=== PATIENT | male | born 1965 ===

== ENCOUNTER 2017-08-06 21:01 | Inpatient (IN) | payer OTHER ==
[2017-08-06 21:46] LABS: Bilirubin Negative (Negative); Blood, Urine Trace (Negative); Clarity CLEAR (Clear); Glucose, Urine (Dipstick) 250 mg/dL (Negative); Leukocyte Negative (Negative); Nitrite Negative (Negative); Protein, Urine (Dipstick) Trace mg/dL (Neg-Trace); Specific Gravity, Urine 1.028 (1.002-1.036); Urobilinogen 0.2 mg/dL (0.2-1.0)
[2017-08-06 21:48] LABS: Bacteria/HPF 1+ HPF (None Seen); Hyaline Casts/LPF 0-3 HYALINE CAST LPF (0-3 Hyaline); Pathc Cast-AUWi Flag 0.14 (0-2.49); Squamous Epithelial 0-3 HPF (0-3); WBC/HPF 0-3 HPF (0-3)
[2017-08-06 21:55] LABS: Amphetamine Not Detected (NotDetected); Barbiturates Screen Not Detected (NotDetected); Benzodiazepine Screen Not Detected (NotDetected); Cocaine Metabolite Screen Not Detected (NotDetected); Medtox Control Line Valid? VALID (VALID); Medtox Reader # READER 4; Methadone Not Detected (NotDetected); Methamphetamine Not Detected (NotDetected); Opiate Screen Not Detected (NotDetected); Oxycodone Screen Not Detected (NotDetected); Phencyclidine (PCP) Not Detected (NotDetected); THC/Cannabinoid Screen Not Detected (NotDetected); Tricyclic Screen Not Detected (NotDetected)
[2017-08-06 21:57] LABS: #Eosinphils 0.2 thou/uL (0.0-0.7); #Lymphocytes 1.2 thou/uL (1.20-3.40); #Monocytes 0.6 thou/uL (0.11-0.59); #Neutrophils 5.2 thou/uL (1.40-6.50); %Basophils 0.5 % (0.0-1.0); %Eosinophils 3.2 % (0.0-10.0); %Lymphocytes 16.5 % (21.0-51.0); %Neutrophils 71.7 % (42.0-75.0); Hemoglobin 16.7 g/dL (14.0-18.0); Mean Corpuscular HGB CONC 34.6 g/dL (32.0-36.0); Mean Corpuscular Hemoglobin 35.7 pg (27.0-31.0); Mean Platelet Volume 10.7 fL (7.4-10.4); Platelet Count 54 thou/uL (130-400); RBC Distribution Width 12.7 % (11.5-14.5); Red Blood Cell (RBC) Count 4.68 mill/uL (4.70-6.10); White Blood Cell (WBC) Count 7.3 thou/uL (4.8-10.8)
[2017-08-06 22:15] LABS: ALT (SGPT) 80 U/L (8-55); AST (SGOT) 88 U/L (5-34); Albumin 2.4 g/dL (3.5-5.0); Alkaline Phosphatase 241 U/L (40-150); Anion Gap 11 mmol/L (10-20); BUN (Urea Nitrogen) 11 mg/dL (8.4-25.7); Bilirubin, Total 2.9 mg/dL (0.2-1.2); CK (CPK) 93 U/L (30-200); Calc. Creatinine Clearance 0 mL/min (70-130); Calcium 8.1 mg/dL (7.8-10.44); Carbon Dioxide 16 mmol/L (22-29); Chloride 110 mmol/L (98-107); Estimated GFR-MDRD Greater than 90; Globulin 5.1 g/dL (2.4-3.5); Glucose 271 mg/dL (70-105); Lipase 72 U/L (8-78); Protein, Total 7.5 g/dL (6.0-8.3); Sodium 132 mmol/L (136-145)
[2017-08-06 22:19] LABS: CKMB 0.9 ng/mL (0-6.6); Troponin I Less than 0.010 ng/mL (< 0.028)
--- NOTE | 2017-08-06 22:34 | CT ---
CT OF THE BRAIN WITHOUT CONTRAST: 08/06/17 INDICATION: Altered mental status with history of hepatitis C and hepatic encephalopathy and cirrhosis. COMPARISON: None. FINDINGS: No acute infarct, hemorrhage or hydrocephalus is present. Septum pellucidum and third ventricle are m idline. Skull and extracranial soft tissues are within normal limits. There is a mucous retention cys t within the posterior aspect of the left maxillary sinus. IMPRESSION: No acute intracranial abnormality. POS: [facility]
[2017-08-06 22:36] LABS: Actual Bicarbonate (HCO3a) 18.6 mEq/L (22-26); Base Excess (BEa) -4.1 mEq/L (0 (+/-) 2.5); O2 Tension (PaO2) 95.2 mmHg (80.0-100.0); pH, Arterial 7.43 (7.35-7.45)
[2017-08-06 22:37] LABS: Calcium, Ionized 1.2 mmol/L (1.12-1.30); Hematocrit-ABG 48.9 % (42.0-52.0); Hemoglobin (Hb) 16.6 g/dL (14.0-18.0)
[2017-08-06 22:38] LABS: Analyzer IN Cardio ER; Puncture Site RRA
[2017-08-06] MEDS ORDERED: Rocuronium Bromide 50 MG/5 ML VIAL ONE (23:31)
[2017-08-06] MEDS ORDERED: Propofol 1,000 MG/100 ML VIAL IV ONE (23:55)
[2017-08-07] MEDS ORDERED: Ventilator Sedation Protocol 1 EACH FS SCH (00:10)
[2017-08-07] MEDS ORDERED: CCU Electrolyte Replacement 1 EACH FS SCH (00:15)
[2017-08-07] MEDS ORDERED: Dextrose 50% Abboject 50 ML SYRINGE SLOW IVP PRN ×2 (00:26→01:56)
[2017-08-07] MEDS ORDERED: Dextrose 5% in Water 1,000 ML IV PRN ×2 (00:26→01:56)
[2017-08-07] MEDS ORDERED: Ondansetron ODT 4 MG TAB SL PRN ×2 (00:34→01:18)
[2017-08-07] MEDS ORDERED: Acetaminophen 325 MG TAB PO PRN (00:34)
[2017-08-07] MEDS ORDERED: Sodium Chloride 0.9% 1,000 ML IV SCH ×3 (00:34→01:56)
[2017-08-07] MEDS ORDERED: Ondansetron HCl/PF 4 MG/2 ML Vial IVP PRN ×2 (00:34→01:18)
[2017-08-07] MEDS ORDERED: DISCONTINUE PREVIOUS NARCOTIC PAIN MEDICATIONS AND BENZODIAZEPINES FS SCH ×2 (00:37)
[2017-08-07] MEDS ORDERED: Potassium Chloride 40 MEQ in Premix Bag 1 BAG IVPB PRN (00:37)
[2017-08-07] MEDS ORDERED: Magnesium 2 GM/NS 0.9% 100 ML 2 GM in Premix Bag 1 BAG IVPB PRN (00:37)
[2017-08-07] MEDS ORDERED: Potassium Phosphate 9 MMOL in Sodium Chloride 0.9% 100 ML IVPB PRN (00:37)
[2017-08-07] MEDS ORDERED: Potassium Phosphate 12 MMOL in Sodium Chloride 0.9% 250 ML 250 ML IV PRN (00:37)
[2017-08-07] MEDS ORDERED: Magnesium Oxide 400 MG TAB PO PRN ×2 (00:37)
[2017-08-07] MEDS ORDERED: CCU ELECTROLYTE REPLACEMENT PROTOCOL FS PRN (00:37)
[2017-08-07] MEDS ORDERED: Lorazepam 2 MG/ML VIAL SLOW IVP PRN (00:37)
[2017-08-07] MEDS ORDERED: Potassium Chloride 20 MEQ TAB PO PRN ×2 (00:37)
[2017-08-07] MEDS ORDERED: Fentanyl BOLUS 250 ML IVPB PRN ×2 (00:37)
[2017-08-07] MEDS ORDERED: Potassium Phosphate 15 MMOL in Sodium Chloride 0.9% 250 ML 250 ML IV PRN (00:37)
[2017-08-07] MEDS ORDERED: Morphine 4 MG/ML VIAL SLOW IVP PRN (00:37)
[2017-08-07] MEDS ORDERED: Potassium Chloride 40 MEQ in Sodium Chloride 0.9% 250 ML 250 ML IVPB PRN (00:37)
[2017-08-07] MEDS ORDERED: fentaNYL Citrate/PF 2,000 MCG in Sodium Chloride 0.9% 60 ML IV SCH (00:37)
[2017-08-07] MEDS ORDERED: Propofol BOLUS 1,000 MG/100 ML VIAL IV PRN ×2 (00:37)
[2017-08-07 01:05] LABS: INR-International Normal Ratio 1.7; PTT 41.1 SEC (22.9-36.1); Prothrombin Time 20.8 SEC (12.0-14.7)
[2017-08-07 01:12] LABS: Acetaminophen Less than 6.0 mcg/mL (10.0-30.0); Alcohol Less than 10 mg/dL (Less than 10); Salicylate Less than 8.0 mg/dL (15.0-30.0)
[2017-08-07 01:28] LABS: CO2 Tension 28.7 mmHg (35.0-45.0); O2 Tension (PaO2) 522.5 mmHg (80.0-100.0)
[2017-08-07 01:29] LABS: Actual Bicarbonate (HCO3a) 17.5 mEq/L (22-26); Base Excess (BEa) -5.6 mEq/L (0 (+/-) 2.5); Calcium, Ionized 1.2 mmol/L (1.12-1.30); Hemoglobin (Hb) 16.3 g/dL (14.0-18.0)
--- NOTE | 2017-08-07 01:29 | PDOC.FPRHP ---
- History of Present Illness Chief Complaint: AMS History of Present Illness: Patient is a 52yo M with PMH of Hepatitis C, Cirrhosis, HTN, and T2DM who presents with AMS from the [facility]. During a med pass, the staff noted patient being altered and arrived via EMS. In the ED, patient with GCS of 6. He is not alert to answer ROS or Hx questions. History is obtained by supervising guard and medical records. ED Course: In the ED, we administered 10mg Etomidate and 80mg of Rocuronium and intubated with 8.0 tube using a Glidescope. He also received 1L NS and Diprivan drip at 10mcg/kg/min. - Allergies/Adverse Reactions Allergies Allergy/AdvReac Type Severity Reaction Status Date / Time No Known Drug Allergies Allergy Unverified 08/07/17 00:15 - Home Medications Medication Instructions Recorded Confirmed Type Furosemide [Lasix] 40 mg PO BID 08/07/17 08/07/17 History Hepatitis A Virus Vaccine/PF 1 ml IM ONE 08/07/17 08/07/17 History [Havrix] Hepatitis B Virus Vaccine/PF 20 mcg IM ONE 08/07/17 08/07/17 History [Engerix-B (Adult)] Insulin Regular (Human) [NovoLIN R] 1 units SC SEEPHYS PRN 08/07/17 08/07/17 History Insulin, Isophane Human (NPH) 12 units SC BID 08/07/17 08/07/17 History [NovoLIN N] Lactulose [Enulose] 45 gm PO TID 08/07/17 08/07/17 History Propranolol [Inderal] 10 mg PO DAILY 08/07/17 08/07/17 History Spironolactone [Aldactone] 50 mg PO BID 08/07/17 08/07/17 History - History PMHx: 1. Hepatitis C 2. Cirrhosis 3. HTN 4. T2DM PSHx: unk FHx: unk Social: unk - Review of Systems ROS unobtainable: due to mental status - Vital signs BP: 141/64 HR: 65 RR: 16 Tmax: 97.6 Pox: 97% on RA Wt: 79.4kg - Physical Exam -Constitutional: AOx0, GCS: 6, withdraws from pain HEENT: normocephalic and atraumatic, PERRLA, MMM Neck: supple, trachea midline -Neck: JVD present Heart: RRR, normal S1/S2, no murmurs/rubs/gallops, pulses present Lungs: CTAB, no respiratory distress, good air movement Abdomen: soft -Abdomen: Difficult to examine due to handcuffs being in place, but + fluid wave, palpable liver edge. -Neurological: GCS 6 Skin: no rash/lesions, no jaundice Heme/Lymphatic: no unusual bruising or bleeding, no purpura, no petechia FMR H&P: Results - Labs Result Diagrams: 08/07/17 03:18 08/07/17 03:18 Lab results: WBC 7.3 thou/uL (4.8-10.8) 08/06/17 21:43 Hgb 16.7 g/dL (14.0-18.0) 08/06/17 21:43 Hct 48.2 % (42.0-52.0) 08/06/17 21:43 MCV 103.0 fl (80.0-94.0) H 08/06/17 21:43 Plt Count 54 thou/uL (130-400) L 08/06/17 21:43 Neutrophils % 71.7 % (42.0-75.0) 08/06/17 21:43 ABG pH 7.43 (7.35-7.45) 08/06/17 21:43 ABG pCO2 29.0 mmHg (35.0-45.0) L 08/06/17 21:43 ABG pO2 95.2 mmHg (80.0-100.0) 08/06/17 21:43 Sodium 132 mmol/L (136-145) L 08/06/17 21:43 Potassium 5.0 mmol/L (3.5-5.1) 08/06/17 21:43 Chloride 110 mmol/L (98-107) H 08/06/17 21:43 Carbon Dioxide 16 mmol/L (22-29) L 08/06/17 21:43 BUN 11 mg/dL (8.4-25.7) 08/06/17 21:43 Creatinine 0.73 mg/dL (0.6-1.3) 08/06/17 21:43 Glucose 271 mg/dL (70-105) H 08/06/17 21:43 Calcium 8.1 mg/dL (7.8-10.44) 08/06/17 21:43 Total Bilirubin 2.9 mg/dL (0.2-1.2) H 08/06/17 21:43 AST 88 U/L (5-34) H 08/06/17 21:43 ALT 80 U/L (8-55) H 08/06/17 21:43 Alkaline Phosphatase 241 U/L (40-150) H 08/06/17 21:43 Ammonia 229 umol/L (18-72) H 08/06/17 21:44 Creatine Kinase 93 U/L (30-200) 08/06/17 21:43 CK-MB (CK-2) 0.9 ng/mL (0-6.6) 08/06/17 21:43 Serum Total Protein 7.5 g/dL (6.0-8.3) 08/06/17 21:43 Albumin 2.4 g/dL (3.5-5.0) L 08/06/17 21:43 Lipase 72 U/L (8-78) 08/06/17 21:43 Urine Ketones Negative mg/dL (Negative) 08/06/17 21:42 Urine Blood Trace (Negative) H 08/06/17 21:42 Urine Nitrite Negative (Negative) 08/06/17 21:42 Ur Leukocyte Esterase Negative (Negative) 08/06/17 21:42 Urine RBC 7-10 HPF (0-3) H 08/06/17 21:42 Urine WBC 0-3 HPF (0-3) 08/06/17 21:42 Ur Squamous Epith Cells 0-3 HPF (0-3) 08/06/17 21:42 Urine Bacteria 1+ HPF (None Seen) H 08/06/17 21:42 - Radiology Interpretation CT scan - head Status: image reviewed by me, report reviewed by me Additional comment: CThead with no acute abnormality. FMR H&P: A/P - Problem List (1) Acute hepatic encephalopathy Current Visit: Yes Status: Acute Code(s): K72.00 - ACUTE AND SUBACUTE HEPATIC FAILURE WITHOUT COMA (2) Thrombocytopenia Current Visit: Yes Status: Acute Code(s): D69.6 - THROMBOCYTOPENIA, UNSPECIFIED (3) Metabolic acidosis Current Visit: Yes Status: Acute Code(s): E87.2 - ACIDOSIS (4) Hepatitis C Current Visit: Yes Status: Chronic Code(s): B19.20 - UNSPECIFIED VIRAL HEPATITIS C WITHOUT HEPATIC COMA (5) Cirrhosis Current Visit: Yes Status: Chronic Code(s): K74.60 - UNSPECIFIED CIRRHOSIS OF LIVER (6) Hyponatremia Current Visit: Yes Status: Acute Code(s): E87.1 - HYPO-OSMOLALITY AND HYPONATREMIA (7) Hyperchloremia Current Visit: Yes Status: Acute Code(s): E87.8 - OTH DISORDERS OF ELECTROLYTE AND FLUID BALANCE, NEC (8) Hyperbilirubinemia Current Visit: Yes Status: Acute Code(s): E80.6 - OTHER DISORDERS OF BILIRUBIN METABOLISM (9) Type 2 diabetes mellitus Current Visit: Yes Status: Chronic (10) Hypertension Current Visit: Yes Status: Chronic Code(s): I10 - ESSENTIAL (PRIMARY) HYPERTENSION - Plan Acute Hepatic Encephalopathy - MELD-Na score 21 - Lactulose 30mg QID, Rifaximin q8h - Initial GCS 6, intubated in ED by myself, with Jonah supervising - Propofol ggt for sedation - Vent settings: PEEP 5, Fio2 100%, Rate 15, TV 500 - consult Pulm - Initial Ammonia 229, repeat in am - SDS, UA, urine cx pending - CThead negative - No white count or fever. Do not suspect SBP at this time Metabolic Acidosis - 2/2 #1 Hyponatremia - likely 2/2 chronic cirrhosis Hyperbilirubinemia - 2/2 Cirrhosis, will continue to monitor Thrombocytopenia - Plt 54 - 2/2 Cirrhosis, will continue to monitor HTN - Continue home Propranolol and Lasix T2DM - continue home Humulin - SSI Hepatitis C - unclear if this has been treated - consider GI consult Disposition/LOS: Length of hospital stay: > 2 days FMR H&P: Upper Level - Pertinent history 52 year old male presents to ED from group home for altered mental status. History is limited due to his ACS and no history being available from group home guards present. He was found to be obtunded today while meds were being passed out. He did not respond to commands but had a pulse and was breathing spontaneously. Time last seen normal is unknown. In the ER, he was noted to withdraw from pain but was not alert and did not follow commands. He was seen by Dr. Almanza and STACEY Hernandez and given iv fluids. His ammonia was found to be 229. PMH includes Hep C, HTN, cirrhosis, and DM2. Is reported to have previous PSH unknown Social history Patient is incarcerated. Otherwise history unknown - Pertinent findings Temp 97.6 RR 11 HR 68 BP 118/49 O2 sat 98% on room air Weight 79.4 kg General: Obtunded. Eyes: Pupils sluggish. Does not open eyes on command ENT: MMM, oropharynx clear CV: RRR, no murmurs, rubs or gallops. Pulses full and equal Resp: CTAB. No wheezing, rales, or rhonchi Abdomen: Ascites with fluid wave present. No palpable masses Extremity: No cyanosis or edema. Skin: No rash or ulcer. No palpable lesions Neuro: GCS [id number] - Plan Date/Time: 08/07/17 0102 I, Joe Brownlee DO, have evaluated this patient and agree with findings/plan as outlined by internet programmer resident. Pertinent changes/additions are listed here. A/P 52 year old male with PMH of cirrhosis and hepatitis C presents with: 1) Acute hepatic encephalopathy - Admit to CCU. - Will give lactulose and rifaximin. Repeat ammonia in the morning. - Will check UA and CXR to look for contributing factors. - No white count or fever. Do not suspect spontaneous bacterial peritonitis at this time but consider diagnostic paracentesis should this change. - When I evaluated the patient, I found him to have a GCS of 6 to 7. At times, he would withdraw from pain but at others he would only have flexion to pain. STACEY Herbert reported he looked worse than when she had initially seen him. - In light of the patient being obtunded and apparently worsening, the decision was made to intubate him. He was given 10 mg etomidate and 80 mg rocuronium and was intubated by Glidescope by Dr. Galicia with myself and Dr. Almanza supervising. - Consult pulmonology in the morning 2) Diabetes mellitus type 2 - Accuchecks and sliding scale insulin 3) Hypertension - Monitor and treat prn 4) Hepatitis C - Unclear if this has been treated. Attending Addendum - Attending Addendum Date/Time: 08/07/17 0251 I personally evaluated the patient and discussed the management with Dr. Galicia I agree with the History, Examination, Assessment and Plan documented above with any addition or exceptions noted below- Briefly this is a 52yo M with h/o Hepatitis C, Cirrhosis, HTN, and T2DM who presents with AMS from the [facility]. The staff noted patient being altered and arrived via EMS. In the ED, patient with GCS of 6. He is not alert to answer ROS or Hx questions. History is obtained by supervising guard and medical records. Patient intubated in ER for airway protection. PMH/PSH/ALl/Meds reviewed and agree with resident' s documentation. Afebrile BP 183/90 P85 RR15 99%RA Exam repeated by me- significant findings- GCS=6 prior to intubation, Lungs-CTA b/l; CV-RRR, no murmur; Abd- soft, nd, (+) hepatomegaly Pertinent labs: ML=077 K=5.0 Nk=281 CO2= 16 G;qa=099 T.bili=2.9 AST=88 ALT=80 alk zpnz=210 TSH=1.9741 WBC=7.3 Hgb=16.7 Hct=48.2 Plt=54 INR=1.7 UDS neg; ABG= 7.40/29/523/17 99% Fyrebiv=116 A/P: 1) Hepatic encephalopathy- continue lactulose; will add rifaxamin. 2) Acute resp failure due to hyperammonemia- continue vent support and wean as toleratedm 3) Type 2 DM- monitor accuchecks and treat accordingly, 4) HTN- continue home meds
[2017-08-07 01:30] LABS: ALV-art Gradient 154.625 (0-20); Analyzer IN Cardio ER; Puncture Site LFA
[2017-08-07] MEDS ORDERED: HumaLOG 300 UNITS/3 ML VIAL SC PRN ×2 (01:56)
[2017-08-07 02:26] VITALS: BMI 27.3
[2017-08-07 04:21] LABS: #Basophils 0.1 thou/uL (0.0-0.2); #Eosinphils 0.2 thou/uL (0.0-0.7); #Lymphocytes 1.3 thou/uL (1.20-3.40); #Monocytes 0.9 thou/uL (0.11-0.59); #Neutrophils 8.2 thou/uL (1.40-6.50); %Basophils 0.5 % (0.0-1.0); %Eosinophils 2.2 % (0.0-10.0); %Lymphocytes 11.9 % (21.0-51.0); %Monocytes 8.4 % (0.0-10.0); %Neutrophils 76.9 % (42.0-75.0); Hemoglobin 16.7 g/dL (14.0-18.0); Mean Corpuscular HGB CONC 36.2 g/dL (32.0-36.0); Mean Corpuscular Hemoglobin 37.1 pg (27.0-31.0); Mean Platelet Volume 10.9 fL (7.4-10.4); Platelet Count 55 thou/uL (130-400); RBC Distribution Width 12.8 % (11.5-14.5); Red Blood Cell (RBC) Count 4.51 mill/uL (4.70-6.10); White Blood Cell (WBC) Count 10.7 thou/uL (4.8-10.8)
[2017-08-07] MEDS ORDERED: Pantoprazole 40 MG VIAL IVP SCH ×2 (04:30)
[2017-08-07] MEDS ORDERED: Octreotide Acetate 50 MCG/ML AMP SLOW IVP SCH (04:30)
[2017-08-07] MEDS ORDERED: Octreotide Acetate 1,250 MCG in Sodium Chloride 0.9% 250 ML 250 ML IVPB SCH (04:30)
[2017-08-07 04:31] LABS: ALT (SGPT) 81 U/L (8-55); AST (SGOT) 86 U/L (5-34); Albumin 2.5 g/dL (3.5-5.0); Alkaline Phosphatase 225 U/L (40-150); Anion Gap 11 mmol/L (10-20); BUN (Urea Nitrogen) 13 mg/dL (8.4-25.7); Bilirubin, Total 3.5 mg/dL (0.2-1.2); Calc. Creatinine Clearance 127 mL/min (70-130); Calcium 8.3 mg/dL (7.8-10.44); Carbon Dioxide 17 mmol/L (22-29); Chloride 111 mmol/L (98-107); Estimated GFR-MDRD Greater than 90; Glucose 267 mg/dL (70-105); Potassium 4.9 mmol/L (3.5-5.1); Protein, Total 7.5 g/dL (6.0-8.3); Sodium 134 mmol/L (136-145)
[2017-08-07] MEDS ORDERED: Sodium Chloride 0.9% 500 ML IV SCH (04:45)
[2017-08-07] MEDS: Propofol 1,000 MG/100 ML VIAL IV PRN ×3 (05:54→22:30)
[2017-08-07] MEDS: Furosemide 20 MG/2 ML VIAL SLOW IVP SCH ×2 (05:55→13:41)
--- NOTE | 2017-08-07 07:48 | PDOC.FM ---
- Subjective Subjective: Pt currently sedated and on mechanical ventilation. - Objective MAR Reviewed: Yes Vital Signs & Weight: Vital Signs (12 hours) Temp Pulse Resp Pulse Ox 08/07/17 03:00 97.5 F L 08/07/17 02:00 18 08/07/17 01:00 97.8 F 140 H 26 H 100 Weight Admit Weight 76.8 kg Weight 76.8 kg Most Recent Monitor Data Heart Rate from ECG 102 NIBP 116/74 NIBP BP-Mean 83 Respiration from ECG 16 SpO2 100 I&O: 08/06/17 08/07/17 08/08/17 06:59 06:59 06:59 Intake Total 669.3 Output Total 500 325 Balance 169.3 -325 Result Diagrams: 08/07/17 03:18 08/07/17 03:18 <Deborah Ramirez C - Last Filed: 08/07/17 08:08> - Objective Vital Signs & Weight: Vital Signs (12 hours) Temp Pulse Resp BP Pulse Ox 08/07/17 10:00 14 08/07/17 08:16 96 142/62 H 08/07/17 08:00 15 08/07/17 07:43 97.5 F L 94 15 100 08/07/17 06:00 15 08/07/17 04:00 15 08/07/17 03:00 97.5 F L 08/07/17 02:00 18 08/07/17 01:00 97.8 F 140 H 26 H 100 Weight Admit Weight 76.8 kg Weight 76.8 kg Most Recent Monitor Data Heart Rate from ECG 87 NIBP 94/53 NIBP BP-Mean 67 Respiration from ECG 15 SpO2 100 I&O: 08/06/17 08/07/17 08/08/17 06:59 06:59 06:59 Intake Total 669.3 0 Output Total 500 800 Balance 169.3 -800 Result Diagrams: 08/07/17 03:18 08/07/17 03:18 <Gabo Matthews - Last Filed: 08/07/17 11:32> Phys Exam - Physical Examination Constitutional: NAD Respiratory: clear to auscultation bilateral Cardiovascular: RRR Gastrointestinal: soft, non-tender Musculoskeletal: no edema Psychiatric: normal affect, A&O x 3 <Deborah Ramirez - Last Filed: 08/07/17 08:08> Dx/Plan (1) Acute hepatic encephalopathy Code(s): K72.00 - ACUTE AND SUBACUTE HEPATIC FAILURE WITHOUT COMA Status: Acute Plan: Pt intubated and sedated for airway protection due to Vent management per Pulm. Continue Lactulose and Rifaximin. (2) GI bleed Code(s): K92.2 - GASTROINTESTINAL HEMORRHAGE, UNSPECIFIED Status: Acute Plan: Blood noted in OG tube after placement. Possibly traumatic vs. Variceal. Will discuss with GI. (3) Hyponatremia Code(s): E87.1 - HYPO-OSMOLALITY AND HYPONATREMIA Status: Acute Plan: 2/ to liver disease Na: 134. continue to monitor. (4) Thrombocytopenia Code(s): D69.6 - THROMBOCYTOPENIA, UNSPECIFIED Status: Acute Plan: No active bleeding currently. Will monitor for signs of bleeding and transfuse platelets as needed. (5) Cirrhosis Code(s): K74.60 - UNSPECIFIED CIRRHOSIS OF LIVER Status: Chronic Plan: MELD score of 19, consistent with estimated 6% 3 month mortality. Continue Spironolactone. Lasix. (6) Hypertension Code(s): I10 - ESSENTIAL (PRIMARY) HYPERTENSION Status: Chronic Plan: BP stable. Continue to monitor. (7) Type 2 diabetes mellitus Status: Chronic Plan: Continue Intermediate acting insulin. (8) Hyperbilirubinemia Code(s): E80.6 - OTHER DISORDERS OF BILIRUBIN METABOLISM Status: Acute (9) Hyperchloremia Code(s): E87.8 - OTH DISORDERS OF ELECTROLYTE AND FLUID BALANCE, NEC Status: Acute - Plan Plan: GI ppx: protonix DVT: SCDs <Deborah Ramirez - Last Filed: 08/07/17 08:08> Attending Addendum - Attending Addendum Date/Time: 08/07/17 1130 I personally evaluated the patient and discussed the management with Dr. Ramirez. I agree with the History, Examination, Assessment and Plan documented above with any addition or exceptions noted below. Patient admitted for acute encephalopathy in setting of known cirrhosis. His ammonia level is highly elevated and is likely the cause of altered mentation. Patient intubated for airway protection. Pulm on board. Increasing Lactulose dosing to help clear ammonia. Consider infection and GI bleed as potential causes of his acute decompensation, but no evidence of infection such as SBP at this time. Patient had some mild GI bleeding earlier that was possibly related to OG tube insertion, it has since resolved. Will give Rocephin for SBP ppx and consult GI. Hgb stable. <Gabo Matthews - Last Filed: 08/07/17 11:32>
--- NOTE | 2017-08-07 07:52 | RAD ---
CHEST 1 VIEW: HISTORY: Intubated. Dyspnea. FINDINGS: Cardiac silhouette is magnified by projection. Pulmonary vasculature is unremarkable. Mediastinal i s midline. The tip of the endotracheal tube overlies the thoracic inlet. Nasogastric tube descends to the abdomen. Subtle opacity at the retrocardiac region medially at the left base has the appearan ce of parenchymal opacity. No evidence of pneumothorax. IMPRESSION: 1. Left lower lobe parenchymal opacity. Clinical correlation regarding other signs and symptoms of left lower pneumonitis or atelectasis is required. Please consider upright PA and lateral views of t he patient when patient can undergo that exam. 2. Endotracheal catheter is in good radiographic position. POS: [facility]
[2017-08-07] MEDS: Spironolactone 25 MG TAB PER TUBE SCH ×2 (08:26→16:35)
[2017-08-07] MEDS: Rifaximin 550 MG TAB PO SCH ×2 (08:27→21:36)
[2017-08-07] MEDS: Pantoprazole 40 MG VIAL IVP SCH ×4 (08:27→21:36)
[2017-08-07] MEDS: Propranolol 10 MG TAB PER TUBE SCH ×2 (08:33)
[2017-08-07] MEDS: HumaLOG 300 UNITS/3 ML VIAL SC PRN ×3 (08:34→16:00)
[2017-08-07] MEDS: Sodium Chloride 0.9% 1,000 ML IV SCH ×2 (08:35→19:03)
--- NOTE | 2017-08-07 08:35 | CON ---
DATE OF CONSULTATION: 08/07/2017 CONSULTING PHYSICIAN: Family Medicine Service. REASON FOR CONSULTATION: ICU management. HISTORY OF PRESENT ILLNESS: This is a 52-year-old male, who is an inmate in the [facility]. He was found t o be with altered mental status last night. He is thought to be encephalopathic from his cirrhosis. He was intubated for airway protection and remains on mechanical ventilation. PAST MEDICAL HISTORY: 1. Diabetes mellitus, type 2. 2. Hepatitis C with cirrhosis. 3. Hypertension. PAST SURGICAL HISTORY: Unknown. FAMILY MEDICAL HISTORY: Unknown. SOCIAL HISTORY: Unknown. MEDICATIONS: Prior to admission, Aldactone 50 mg b.i.d., propranolol 10 mg daily, NPH insulin 12 uni ts twice daily, Lasix 40 mg twice daily, lactulose 45 grams t.i.d. REVIEW OF SYSTEMS: Cannot be obtained as patient is currently on mechanical ventilation. PHYSICAL EXAMINATION: VITAL SIGNS: Temperature 97.5, pulse 102, blood pressure 116/74, O2 saturation 100%, intake 669 and output 500. HEENT: Unremarkable except for injected sclerae. NECK: No JVD. LUNGS: Clear to auscultation without wheezing or rhonchi. CARDIOVASCULAR: S1 and S2 regular, without murmur. ABDOMEN: Soft and nontender. No palpable thyromegaly. EXTREMITIES: No clubbing, cyanosis, or edema. SKIN: He has 1 spider telangiectasia to disposed neck. IMAGING: Chest x-ray, reviewed personally by myself, demonstrates a question of density in the left lower lobe. Endotracheal tube is in good position. There is an OG tube in place. Lung martins are, otherwise, clear. Brain CT show no acute intracranial abnormality. LABORATORY DATA: White blood cell count 10.7, hematocrit 46.2, platelet count 55. INR 1.7. PH 7.40 , pCO2 of 28, pO2 of 522 on SIMV rate 15, tidal volume 500, PEEP 5, pressure support 10, FiO2 100%. Sodium 134, potassium 4.9, chloride 111, CO2 of 17, BUN 13, creatinine 0.7, glucose 267, AST 86, ALT 81. Ammonia was originally 229, repeat 196. Urinalysis showed some red blood cells. Tox screen was negative. ASSESSMENT: 1. Hepatic encephalopathy. 2. Acute respiratory failure, requiring mechanical ventilation. 3. Hepatitis C with cirrhosis. PLAN: 1. We would decrease IV fluids. 2. Consider stopping octreotide drip if no evidence of gastrointestinal bleed. 3. Consult GI regarding the hepatic issues. 4. Extubate once he is awake. 5. Continue lactulose and Xifaxan. Above encompassed 45 minutes critical care time.
[2017-08-07] MEDS ORDERED: Rifaximin 550 MG TAB PER TUBE SCH (09:00)
[2017-08-07] MEDS: NPH, Human Insulin Isophane 300 UNIT/3 ML VIAL SC SCH ×2 (09:21→21:36)
[2017-08-07 10:56] LABS: Actual Bicarbonate (HCO3a) 17.6 mEq/L (22-26); Base Excess (BEa) -4.9 mEq/L (0 (+/-) 2.5); CO2 Tension 26.8 mmHg (35.0-45.0); Hematocrit-ABG 44.2 % (42.0-52.0); O2 Tension (PaO2) 114.6 mmHg (80.0-100.0); pH, Arterial 7.43 (7.35-7.45)
[2017-08-07 10:57] LABS: Calcium, Ionized 1.2 mmol/L (1.12-1.30); Hemoglobin (Hb) 15.6 g/dL (14.0-18.0); Puncture Site RBA
[2017-08-07] MEDS ORDERED: cefTRIAXone Sodium 1,000 MG in Syringe 0 ML IVPB SCH ×3 (11:30)
[2017-08-07] MEDS: cefTRIAXone\\ROCEPHIN 1 GM, Syringe 0.4 ML in Sterile Water 9.6 ML SLOW IVP SCH (13:12)
--- NOTE | 2017-08-07 19:01 | CON ---
DATE OF CONSULTATION: 08/07/2017 GI INPATIENT CONSULTATION NOTE REQUESTING PHYSICIAN: Dr. Deborah Ramirez. REASON FOR CONSULTATION: Hepatic encephalopathy. HISTORY OF PRESENT ILLNESS: Josesito Rick is a 52-year-old man, an inmate at the [facility] , who presented late last night and was admitted early this morning with what sounds like acute alter ed mental status. The patient is obtunded and on the ventilator, I am unable to obtain any history f rom him. History was obtained solely from nursing staff as well as the available documentation to me . The patient evidently has a prior history of cirrhosis and hepatitis C, it is unclear to me what t he etiology of his cirrhosis is from available documentation, or whether his hepatitis C has ever bee n treated in the past. He also has diabetes. From what I can gather, he may have a history of esoph ageal varices and hepatic encephalopathy as well as ascites, given that he is on Lasix, spironolacton e, propranolol, and lactulose on an outpatient basis. His level of compliance with lactulose therapy is also unknown to me, any preceding events are also unknown to me, the story is that he was found t o be acutely altered and less and much responsive at his facility last night and so he was brought to the Emergency Department. On presentation, his GCS score was 6 and so he was intubated in the Emerg ency Department. Labs were significant for an ammonia level elevated to 229 and so an orogastric tub e was placed and he was started on lactulose as well as added rifaximin. Evidently just after orogas tric tube placement, there was a small amount of reddish or pinkish fluid, which came back out of the tube and there was initial concern for GI bleeding, but this quickly resolved and the orogastric tub e output has all been clear, yellowish fluid since then. Hemoglobin is 16.7 and BUN only 13, so I do not really have concern for gastrointestinal bleeding at this time. The patient is tolerating the v entilator well. His mental status has not improved. CT head was negative. PAST MEDICAL HISTORY: Hepatitis C, cirrhosis, hypertension, diabetes type 2. ALLERGIES: No known drug allergies. OUTPATIENT MEDICATIONS: Lasix 40 mg b.i.d., spironolactone 50 mg b.i.d., propranolol 10 mg daily, la ctulose 45 grams t.i.d., insulin. FAMILY HISTORY: Unable to obtain. SOCIAL HISTORY: Unable to obtain. The patient is currently incarcerated. PHYSICAL EXAMINATION: VITAL SIGNS: Temperature 98.7, pulse 80, blood pressure 108/58, 100% oxygen saturation on ventilator . GENERAL: Obtunded 52-year-old man, tolerating the ventilator well, appears to be in no distress. SKIN: Multiple tattoos. No jaundice, no rash visible or palpable. EYES: Mild scleral icterus. ENT: The patient is endotracheally intubated, orogastric tube on low intermittent suction and suctio vivek out some clear yellow fluid. LYMPH: No submandibular, supraclavicular lymphadenopathy. THYROID: Not enlarged. HEART: Regular rate and rhythm. LUNGS: Clear to auscultation bilaterally. ABDOMEN: Nondistended. Bowel sounds present, soft and nontender to palpation throughout. No masses or organomegaly appreciated. EXTREMITIES: Trace pretibial edema bilaterally. LABORATORY STUDIES: WBC 10.7, hemoglobin 16.7, platelets 55, MCV 102. INR 1.7. Sodium 134, potassi um 4.9, BUN 13, creatinine 0.73. Ammonia level is still elevated at 196. Total bilirubin 3.5, alkal ine phosphatase 225, AST 86, ALT 81, albumin 2.5. TSH 1.97. Lipase 72. IMAGING STUDIES: CT of the head showed no acute abnormality. Chest x-ray shows a left lower lobe pa renchymal opacity and endotracheal tube in good position. ASSESSMENT AND PLAN: 1. Hepatic encephalopathy. 2. Cirrhosis, etiology unknown to me at this time. 3. Hepatitis C, unclear if this has been treated in the past. The patient's presentation is indeed consistent with acute hepatic encephalopathy. His level of compliance with lactulose therapy is uncl ear. I agree with the lactulose and also the addition of rifaximin at this time. Also, agree with I nfectious workup being undertaken. We would continue his home diuretics and be judicious with any IV fluid administration. I am not seeing any evidence of gastrointestinal bleeding. Note, hemoglobin 16.7, clear output from the orogastric tube, BUN only 13. I think the octreotide can be discontinued once that bag has run out. PPI can be continued for prophylaxis purposes. It is unknown whether he has any history of esophageal varices or portal hypertensive gastropathy, but this is certainly poss ible as propranolol is on his outpatient medication list. Regardless, this is certainly not consiste nt with variceal bleeding. We would continue his propranolol here as well. I will order some basic lab workup including iron studies, autoimmune markers and viral hepatitis ser ologies just to try to sort out the etiology of his cirrhosis. This may all be due to his chronic he patitis C. GI will follow along. Please call back with questions or concerns.
[2017-08-08] MEDS: HumaLOG 300 UNITS/3 ML VIAL SC PRN ×5 (01:37→16:13)
[2017-08-08] MEDS ORDERED: Artificial Tear Sol 15 ML BOT EA EYE PRN (01:38)
[2017-08-08 04:59] LABS: #Basophils 0.1 thou/uL (0.0-0.2); #Eosinphils 0.2 thou/uL (0.0-0.7); #Lymphocytes 1.7 thou/uL (1.20-3.40); #Monocytes 1.2 thou/uL (0.11-0.59); #Neutrophils 7.8 thou/uL (1.40-6.50); %Basophils 0.7 % (0.0-1.0); %Lymphocytes 15.8 % (21.0-51.0); %Monocytes 10.7 % (0.0-10.0); %Neutrophils 70.9 % (42.0-75.0); Hemoglobin 15.3 g/dL (14.0-18.0); Mean Corpuscular HGB CONC 34.6 g/dL (32.0-36.0); Mean Corpuscular Hemoglobin 35.8 pg (27.0-31.0); Mean Platelet Volume 11.5 fL (7.4-10.4); Platelet Count 55 thou/uL (130-400); Red Blood Cell (RBC) Count 4.26 mill/uL (4.70-6.10)
[2017-08-08 05:03] LABS: ALT (SGPT) 65 U/L (8-55); AST (SGOT) 66 U/L (5-34); Albumin 2.2 g/dL (3.5-5.0); Alkaline Phosphatase 125 U/L (40-150); Anion Gap 10 mmol/L (10-20); BUN (Urea Nitrogen) 18 mg/dL (8.4-25.7); Calc. Creatinine Clearance 100 mL/min (70-130); Calcium 7.9 mg/dL (7.8-10.44); Carbon Dioxide 21 mmol/L (22-29); Chloride 111 mmol/L (98-107); Estimated GFR-MDRD 85; Globulin 4.4 g/dL (2.4-3.5); Glucose 219 mg/dL (70-105); Iron 146 ug/dL (65-175); Iron Binding Capacity, Total 139 mcg/dL (261-462); Potassium 3.9 mmol/L (3.5-5.1); Protein, Total 6.6 g/dL (6.0-8.3); Sodium 138 mmol/L (136-145)
[2017-08-08 05:22] LABS: Ferritin 362.07 ng/mL (22-322)
[2017-08-08 05:35] LABS: HBCM Index 0.07 S/CO (0-0.79); HBSAg Index 0.19 S/CO (0-0.99); Hep A IgM AB Non-Reactive (NonReactive); Hep A IgM S/CO 0.12 S/CO (0-0.79); Hep B Surf Ag Non-Reactive S/CO (NonReactive); Hepatitis B Core IGM Abs Non-Reactive (NonReactive)
--- NOTE | 2017-08-08 06:03 | PDOC.FM ---
- Subjective Subjective: Pt continues to be sedated, propofol with increased this AM per his nurse due to some movement to stimulation. RT at bedside to draw ABG. He has apparently infrequently followed some commands, asked to move his feet, not currently doing so but retracting to stim/pain. Currently taking infrequent spontaneous breaths. Likely will not be weaned today. - Objective MAR Reviewed: Yes Vital Signs & Weight: Vital Signs (12 hours) Temp Pulse Resp Pulse Ox 08/08/17 04:06 85 08/08/17 04:00 99.0 F 08/08/17 02:00 14 08/08/17 01:00 99.0 F 08/08/17 00:42 82 08/08/17 00:00 14 08/07/17 23:08 84 08/07/17 22:00 16 08/07/17 20:47 86 08/07/17 20:00 14 08/07/17 19:00 99.5 F 83 14 100 08/07/17 18:30 85 Weight Admit Weight 76.8 kg Weight 76.8 kg Most Recent Monitor Data Heart Rate from ECG 82 NIBP 106/57 NIBP BP-Mean 69 Respiration from ECG 14 SpO2 100 I&O: 08/06/17 08/07/17 08/08/17 06:59 06:59 06:59 Intake Total 669.3 2117.3 Output Total 500 2275 Balance 169.3 -157.7 Result Diagrams: 08/08/17 04:36 08/08/17 04:36 <Elizabeth Mansfield - Last Filed: 08/08/17 07:24> - Objective Vital Signs & Weight: Vital Signs (12 hours) Temp Pulse Resp BP Pulse Ox 08/08/17 09:45 88 15 94 L 08/08/17 09:26 96 144/59 H 08/08/17 08:00 99.2 F 78 17 100 08/08/17 06:00 13 08/08/17 04:06 85 08/08/17 04:00 99.0 F 13 08/08/17 02:00 14 08/08/17 01:00 99.0 F 08/08/17 00:42 82 08/08/17 00:00 14 08/07/17 23:08 84 Weight Admit Weight 76.8 kg Weight 76.8 kg Most Recent Monitor Data Heart Rate from ECG 84 NIBP 136/56 NIBP BP-Mean 103 Respiration from ECG 19 SpO2 100 I&O: 08/07/17 08/08/17 08/09/17 06:59 06:59 06:59 Intake Total 669.3 2117.3 250 Output Total 500 2315 638 Balance 169.3 -197.7 -388 Result Diagrams: 08/08/17 04:36 08/08/17 04:36 <Zulema Carrillo - Last Filed: 08/08/17 10:35> Phys Exam - Physical Examination Constitutional: NAD sedated, on vent HEENT: PERRLA Respiratory: no wheezing, no rales some coarse breath sounds Cardiovascular: RRR, no significant murmur Gastrointestinal: soft, non-tender, no distention, positive bowel sounds Musculoskeletal: no edema Skin: no rash, cap refill <2 seconds <Elizabeth Mansfield - Last Filed: 08/08/17 07:24> Dx/Plan (1) Acute hepatic encephalopathy Code(s): K72.00 - ACUTE AND SUBACUTE HEPATIC FAILURE WITHOUT COMA Status: Acute Plan: Pt continues to be ventilated, currently on SIMV with some spontaneous breathing infrequently, intubated in ED due to low GCS (6) and inability to protect airway, there was initially concern for GI bleed with placement of OG but secretions have been clear with suction. Hgb stable today 15.3. Will continue to monitor. No plans for scope now 2/2 to resolution. His ammonia level is decreased this morning, will continue his home meds of lactulose, lasix , spironolactone. Rifaxamin has also been added due to severity at presentation. Overall, labs improved with treatment--will correlate clinically when pt off sedation and extubated. Per pulm to wean vent when tolerated (2) Cirrhosis Code(s): K74.60 - UNSPECIFIED CIRRHOSIS OF LIVER Status: Chronic QualifierTitle: Hepatic cirrhosis type: unspecified hepatic cirrhosis Plan: Likely 2/2 to reported Hep C, hep panel pending. Appreciate GI recs, AMA ordered to r/o PBC, ceruloplasmin ordered to r/o Damon's, ferritin is somewhat high but more represents chronic disease than hemachromatosis (3) Hepatitis C Code(s): B19.20 - UNSPECIFIED VIRAL HEPATITIS C WITHOUT HEPATIC COMA Status: Chronic QualifierTitle: Viral hepatitis chronicity: chronic Plan: As above, testing pending, not sure if he has been treated (4) Hypertension Code(s): I10 - ESSENTIAL (PRIMARY) HYPERTENSION Status: Chronic QualifierTitle: Hypertension type: essential hypertension Qualified Code( s): I10 - Essential (primary) hypertension Plan: Just taking the diuretics at home and BP has been well controlled will monitor (5) Type 2 diabetes mellitus Status: Chronic 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 Will monitor and goal of around 180 in CCU <Elizabeth Mansfield - Last Filed: 08/08/17 07:24> Attending Addendum - Attending Addendum Date/Time: 08/08/17 1033 I personally evaluated the patient and discussed the management with Dr. Mansfield. I agree with the History, Examination, Assessment and Plan documented above with any addition or exceptions noted below. The patient is awake and propofol has been turned off. May be able to extubate. No scope per GI. Will continue hepatic encephalopathy meds. Mental status is improving. <Zulema Carrillo - Last Filed: 08/08/17 10:35>
[2017-08-08] MEDS: Furosemide 20 MG/2 ML VIAL SLOW IVP SCH ×2 (06:12→13:46)
[2017-08-08] MEDS: Propofol 1,000 MG/100 ML VIAL IV PRN (06:16)
[2017-08-08 06:36] LABS: Hemoglobin A1c 8.3 % (4.0-6.0)
[2017-08-08 06:42] LABS: Hep C IgG Ab Reflex HepC Qnt (NonReactive); Hep C Index 15.85 S/CO (0-0.79)
[2017-08-08 07:23] LABS: Puncture Site RBA
[2017-08-08 07:24] LABS: Base Excess (BEa) -2.9 mEq/L (0 (+/-) 2.5); CO2 Tension 30.2 mmHg (35.0-45.0); Hematocrit-ABG 40.8 % (42.0-52.0); Hemoglobin (Hb) 14.5 g/dL (14.0-18.0); O2 Tension (PaO2) 114.8 mmHg (80.0-100.0); pH, Arterial 7.44 (7.35-7.45)
[2017-08-08 07:26] LABS: Calcium, Ionized 1.2 mmol/L (1.12-1.30)
[2017-08-08] MEDS: NPH, Human Insulin Isophane 300 UNIT/3 ML VIAL SC SCH ×2 (08:26→22:00)
[2017-08-08] MEDS: Propranolol 10 MG TAB PER TUBE SCH ×2 (08:28)
[2017-08-08] MEDS: Spironolactone 25 MG TAB PER TUBE SCH ×2 (08:28→17:29)
[2017-08-08] MEDS: Pantoprazole 40 MG VIAL IVP SCH ×2 (08:28)
[2017-08-08] MEDS: Rifaximin 550 MG TAB PO SCH ×2 (08:28→21:26)
[2017-08-08] MEDS ORDERED: DC Sedation Protocol FS ONE (09:49)
--- NOTE | 2017-08-08 10:25 | PRG ---
DATE OF SERVICE: 08/08/2017 SUBJECTIVE: The patient is doing well. He is awake, follows some commands. OBJECTIVE: VITAL SIGNS: Temperature 99.2, pulse 90, blood pressure 144/59. Total intake for 24 hours 2117, out put 2315. HEENT: Unremarkable. NECK: No JVD. CHEST: Clear. CARDIAC: S1 and S2 regular. ABDOMEN: Mildly distended. EXTREMITIES: No edema. LABORATORY DATA: White blood cell count 11, hematocrit 44, platelet count 55. A pH 7.44, pCO2 of 30 , pO2 114 on SIMV rate 10, tidal volume 500, PEEP 5, pressure support 10, FiO2 35%. Sodium 130, pota ssium 3.9, chloride 111, CO2 21, BUN 18, creatinine 0.9, glucose 219. Ammonia level 92. ASSESSMENT: 1. Acute respiratory failure, requiring mechanical ventilation. 2. Hepatic encephalopathy. 3. Hepatitis with cirrhosis. PLAN: He is awake enough to extubate. I will go ahead and get that done this morning. Further care per Family Medicine and GI.
[2017-08-08] MEDS: cefTRIAXone\\ROCEPHIN 1 GM, Syringe 0.4 ML in Sterile Water 9.6 ML SLOW IVP SCH (11:02)
[2017-08-08] MEDS: Sodium Chloride 0.9% 1,000 ML IV SCH (12:32)
--- NOTE | 2017-08-08 12:36 | PRG ---
DATE OF SERVICE: 08/08/2017 GI INPATIENT NOTE SUBJECTIVE: Mr. Robledo was able to be extubated earlier this morning. He is now awake and somnolen t, but conversant. He is oriented to person. He can tell me his date of . He also tells me th at he takes his medications regularly including the lactulose. He is feeling hungry. He also feels like he needs to have a bowel movement. OBJECTIVE: VITAL SIGNS: Temperature 99.2, pulse 79, blood pressure 118/60, 100% oxygen saturation now on room a ir. GENERAL: He is awake. He is oriented to person and to his own date of , he can answer some que stions appropriately. Still slurring his speech a bit. HEART: Regular rate and rhythm. LUNGS: Clear to auscultation bilaterally. ABDOMEN: Soft and nontender. EXTREMITIES: No peripheral edema. LABORATORY STUDIES: Sodium 138, potassium 3.9, BUN 18, creatinine 0.93, glucose 200, hemoglobin A1c is 8.3. Ferritin 362. Iron 146, TIBC 139, total bilirubin down to 3.0, alkaline phosphatase 125, T 66, ALT 65. Ammonia level is down to 92, albumin 2.2. INR 1.7. WBC 11.0, hemoglobin 15.3, platel ets 55. Serologies for hepatitis A and B are negative, hepatitis C antibody is positive as expected. ASSESSMENT AND PLAN: 1. Hepatic encephalopathy, improving with lactulose and rifaximin. 2. Cirrhosis, decompensated. 3. Hepatitis C. The patient seems to be responding well to the lactulose and rifaximin. He is now extubated. Anticipate mental status will continue to improve to baseline. He has no other obvious m anifestations of decompensation at this time. As he is stating he is compliant with lactulose, I wou ld keep him on rifaximin at a dose of 550 mg twice daily upon hospital discharge. Follow up for his liver issues should be done through the detention system at [facility] in [place] where I believe he has bee n seen before.
[2017-08-09 05:20] LABS: #Eosinphils 0.2 thou/uL (0.0-0.7); #Lymphocytes 1.2 thou/uL (1.20-3.40); #Monocytes 0.8 thou/uL (0.11-0.59); #Neutrophils 2.9 thou/uL (1.40-6.50); %Basophils 0.6 % (0.0-1.0); %Eosinophils 4.2 % (0.0-10.0); %Lymphocytes 23.3 % (21.0-51.0); %Monocytes 14.9 % (0.0-10.0); %Neutrophils 57.2 % (42.0-75.0); Hemoglobin 13.5 g/dL (14.0-18.0); Mean Corpuscular HGB CONC 34.6 g/dL (32.0-36.0); Mean Corpuscular Hemoglobin 35.8 pg (27.0-31.0); Mean Platelet Volume 10.8 fL (7.4-10.4); Platelet Count 41 thou/uL (130-400); RBC Distribution Width 12.6 % (11.5-14.5); Red Blood Cell (RBC) Count 3.78 mill/uL (4.70-6.10)
[2017-08-09 05:29] LABS: ALT (SGPT) 49 U/L (8-55); AST (SGOT) 48 U/L (5-34); Alkaline Phosphatase 96 U/L (40-150); Anion Gap 6 mmol/L (10-20); BUN (Urea Nitrogen) 16 mg/dL (8.4-25.7); Calc. Creatinine Clearance 122 mL/min (70-130); Calcium 7.8 mg/dL (7.8-10.44); Carbon Dioxide 25 mmol/L (22-29); Chloride 110 mmol/L (98-107); Estimated GFR-MDRD Greater than 90; Globulin 3.9 g/dL (2.4-3.5); Glucose 273 mg/dL (70-105); Potassium 3.7 mmol/L (3.5-5.1); Protein, Total 5.9 g/dL (6.0-8.3); Sodium 137 mmol/L (136-145)
[2017-08-09] MEDS: Sodium Chloride 0.9% 1,000 ML IV SCH ×2 (05:41→17:34)
[2017-08-09] MEDS: Furosemide 20 MG/2 ML VIAL SLOW IVP SCH ×2 (05:41→14:29)
[2017-08-09] MEDS: HumaLOG 300 UNITS/3 ML VIAL SC PRN ×3 (05:48→16:35)
--- NOTE | 2017-08-09 06:23 | PDOC.FM ---
- Subjective Subjective: Pt is a AOx3 this AM, sleeping. Angry, states that he is hungry, ate last night and "wants food now." Overall states he is not in pain and breathing feels non- labored. Discussed that it was ok to eat and will be transferred out of CCU with pt and Dr. Quigley. Likely d/c home in the next day or two. - Objective MAR Reviewed: Yes Vital Signs & Weight: Vital Signs (12 hours) Temp Pulse Resp 08/09/17 04:00 98.8 F 08/08/17 21:00 98.9 F 08/08/17 20:00 99.2 F 75 11 L Weight Admit Weight 76.8 kg Weight 76.8 kg Most Recent Monitor Data Heart Rate from ECG 67 NIBP 109/49 NIBP BP-Mean 69 Respiration from ECG 14 SpO2 100 I&O: 08/07/17 08/08/17 08/09/17 06:59 06:59 06:59 Intake Total 669.3 2117.3 2281 Output Total 500 2315 2099 Balance 169.3 -197.7 182 Result Diagrams: 08/09/17 04:05 08/09/17 04:05 <Elizabeth Mansfield - Last Filed: 08/09/17 07:26> - Objective Vital Signs & Weight: Vital Signs (12 hours) Temp Pulse Resp Pulse Ox 08/09/17 12:00 97.8 F 08/09/17 09:30 100 08/09/17 07:41 98.0 F 08/09/17 07:31 98.8 F 60 11 L 100 08/09/17 04:00 98.8 F Weight Admit Weight 76.8 kg Weight 76.8 kg Most Recent Monitor Data Heart Rate from ECG 57 NIBP 127/63 NIBP BP-Mean 78 Respiration from ECG 11 SpO2 100 I&O: 08/08/17 08/09/17 08/10/17 06:59 06:59 06:59 Intake Total 2117.3 3140 1000 Output Total 2315 2194 960 Balance -197.7 946 40 Result Diagrams: 08/09/17 04:05 08/09/17 04:05 <Zulema Carrillo - Last Filed: 08/09/17 13:11> Phys Exam - Physical Examination Constitutional: NAD HEENT: PERRLA, moist MMs Respiratory: no wheezing, no rales, no rhonchi, clear to auscultation bilateral Cardiovascular: RRR, no significant murmur Gastrointestinal: soft, non-tender, no distention, positive bowel sounds Musculoskeletal: no edema Neurological: moves all 4 limbs Psychiatric: normal affect, A&O x 3 Skin: normal turgor, cap refill <2 seconds <Elizabeth Mansfield - Last Filed: 08/09/17 07:26> Dx/Plan (1) Acute hepatic encephalopathy Code(s): K72.00 - ACUTE AND SUBACUTE HEPATIC FAILURE WITHOUT COMA Status: Acute Plan: Pt was extubated yesterday and has been doing well. Appreciate GI recs, stated to continue rifaxamin until dc then continue on lactulose outpatient, has been getting both here. Hgb 13.5 today. No signs of GI bleed. Will continue to monitor. No plans for scope now 2/2 to resolution. Will continue his home meds of lactulose, lasix, spironolactone. Rifaxamin had also been added due to severity at presentation. Overall, labs improved with treatment and he is better clinically. Will transfer to medical. (2) Cirrhosis Code(s): K74.60 - UNSPECIFIED CIRRHOSIS OF LIVER Status: Chronic QualifierTitle: Hepatic cirrhosis type: unspecified hepatic cirrhosis Plan: Likely 2/2 to reported Hep C, hep panel pending. Appreciate GI recs, AMA ordered to r/o PBC, ceruloplasmin ordered to r/o Damon's, ferritin is somewhat high but more represents chronic disease than hemachromatosis. Pending labs. He has had work up outside of this hospital so continue outpatient managment per GI (3) Hepatitis C Code(s): B19.20 - UNSPECIFIED VIRAL HEPATITIS C WITHOUT HEPATIC COMA Status: Chronic QualifierTitle: Viral hepatitis chronicity: chronic Plan: As above, Hep C positive, quantitative pending (4) Hypertension Code(s): I10 - ESSENTIAL (PRIMARY) HYPERTENSION Status: Chronic QualifierTitle: Hypertension type: essential hypertension Qualified Code( s): I10 - Essential (primary) hypertension Plan: Just taking the diuretics at home and BP has been well controlled will monitor (5) Type 2 diabetes mellitus Status: Chronic QualifierTitle: 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 Will monitor and goal of around 180, had gotten a little high o/n <Elizabeth Mansfield - Last Filed: 08/09/17 07:26> Attending Addendum - Attending Addendum Date/Time: 08/09/17 1310 I personally evaluated the patient and discussed the management with Dr. Mansfield. I agree with the History, Examination, Assessment and Plan documented above with any addition or exceptions noted below. The patient is improved this morning. He was extubated yesterday. Tolerating PO. Will transfer to medical floor. <Zulema Carrillo - Last Filed: 08/09/17 13:11>
[2017-08-09] MEDS: Pantoprazole 40 MG VIAL IVP SCH ×2 (08:06)
[2017-08-09] MEDS: NPH, Human Insulin Isophane 300 UNIT/3 ML VIAL SC SCH ×2 (08:06→21:18)
[2017-08-09] MEDS: Propranolol 10 MG TAB PER TUBE SCH ×2 (08:07)
[2017-08-09] MEDS: Spironolactone 25 MG TAB PER TUBE SCH ×2 (08:07→17:27)
[2017-08-09] MEDS: Rifaximin 550 MG TAB PO SCH ×2 (08:07→21:17)
--- NOTE | 2017-08-09 09:33 | PRG ---
DATE OF SERVICE: 08/09/2017 SUBJECTIVE: The patient is doing well, has no acute complaints. PHYSICAL EXAMINATION: VITAL SIGNS: Temperature 98.9, pulse 62, blood pressure 114/49. A 24-hour intake 3140, output 2194. HEENT: Unremarkable. NECK: No JVD. CHEST: Clear. CARDIAC: S1 and S2 regular. ABDOMEN: Soft. EXTREMITIES: No edema. LABORATORY DATA: White blood cell count 5, hematocrit 39.1, platelet count 41. Sodium 137, potassiu m 3.7, chloride 110, CO2 25, BUN 16, creatinine 0.7, glucose 273. ASSESSMENT: 1. Hepatic encephalopathy, which is improved. 2. Status post acute respiratory failure - extubated yesterday. PLAN: He can transfer to the floor. We can discontinue his Abdul. There is no further pulmonary re commendations, I will sign off. Please recall if further assistance needed.
--- NOTE | 2017-08-09 13:03 | PRG ---
DATE OF SERVICE: 08/09/2017 SUBJECTIVE: Mr. Robledo is doing better. He is completely alert today. He is kind of crampy though . He is not complaining of any abdominal pain. He cannot recall the events that led up to his encep halopathic episode. He has remained hemodynamically stable. OBJECTIVE: VITAL SIGNS: Blood pressure 127/63, heart rate 57, 100% oxygen saturation on room air, and temperatu re is 98.0. GENERAL: No acute distress, alert and fully oriented. HEART: Regular rate and rhythm. LUNGS: Clear to auscultation bilaterally. ABDOMEN: Mild distention with ascites, but soft, nontender to palpation throughout. EXTREMITIES: No peripheral edema. LABORATORY STUDIES: WBC 5.0, hemoglobin 13.5, platelets 41. Sodium 137, potassium 3.7, BUN 16, crea tinine 0.76, glucose 248. Total bilirubin is stable at 3.0, alkaline phosphatase 96, AST 48, ALT 49. AMA is pending. Ceruloplasmin pending. Viral hepatitis serology is positive for hepatitis C antib avery as expected. ASSESSMENT AND PLAN: 1. Hepatic encephalopathy, resolved. Continue lactulose. We have added rifaximin 550 mg b.i.d. and this should probably just be continued going forward to attempt to prevent future episodes. 2. Cirrhosis, decompensated, but stable. 3. Chronic hepatitis C. His cirrhosis is otherwise stable. To me, it appears he is likely at his b aseline. GI will sign off. He should continue to follow up for his liver disease through the intermediate system as before. Please call back with any questions or concerns.
[2017-08-10 05:25] LABS: #Eosinphils 0.2 thou/uL (0.0-0.7); #Monocytes 0.4 thou/uL (0.11-0.59); %Basophils 0.5 % (0.0-1.0); %Eosinophils 6.5 % (0.0-10.0); %Lymphocytes 26.9 % (21.0-51.0); %Monocytes 11.9 % (0.0-10.0); %Neutrophils 54.1 % (42.0-75.0); Hemoglobin 12.6 g/dL (14.0-18.0); Mean Corpuscular HGB CONC 34.7 g/dL (32.0-36.0); Mean Corpuscular Hemoglobin 35.8 pg (27.0-31.0); Mean Platelet Volume 11.3 fL (7.4-10.4); Platelet Count 43 thou/uL (130-400); RBC Distribution Width 12.4 % (11.5-14.5); Red Blood Cell (RBC) Count 3.53 mill/uL (4.70-6.10); White Blood Cell (WBC) Count 3.7 thou/uL (4.8-10.8)
[2017-08-10 05:36] LABS: ALT (SGPT) 44 U/L (8-55); AST (SGOT) 47 U/L (5-34); Albumin 1.8 g/dL (3.5-5.0); Alkaline Phosphatase 97 U/L (40-150); Anion Gap 7 mmol/L (10-20); BUN (Urea Nitrogen) 11 mg/dL (8.4-25.7); Bilirubin, Total 1.9 mg/dL (0.2-1.2); Calc. Creatinine Clearance 122 mL/min (70-130); Calcium 7.3 mg/dL (7.8-10.44); Carbon Dioxide 23 mmol/L (22-29); Chloride 110 mmol/L (98-107); Estimated GFR-MDRD Greater than 90; Globulin 3.6 g/dL (2.4-3.5); Glucose 322 mg/dL (70-105); Potassium 3.6 mmol/L (3.5-5.1); Protein, Total 5.4 g/dL (6.0-8.3); Sodium 136 mmol/L (136-145)
[2017-08-10] MEDS: Furosemide 20 MG/2 ML VIAL SLOW IVP SCH (06:20)
[2017-08-10] MEDS: HumaLOG 300 UNITS/3 ML VIAL SC PRN ×2 (06:21→11:26)
--- NOTE | 2017-08-10 08:57 | PDOC.FM ---
- Subjective Subjective: 52 yo male here for hepatic encephalopathy. Continuing to improve with mentation and appetite. AAOx3. Speech improved from Thursday night when I was able to evaluate. No N/V, CP, SOB, abd pain. - Objective MAR Reviewed: Yes Vital Signs & Weight: Vital Signs (12 hours) Temp Pulse Resp BP Pulse Ox 08/10/17 07:28 98.2 F 58 L 16 120/78 100 08/10/17 04:00 97.9 F 62 18 109/69 98 08/10/17 00:00 97.5 F L 62 16 133/97 H 97 Weight Admit Weight 76.8 kg Weight 76.8 kg Most Recent Monitor Data Heart Rate from ECG 53 NIBP 123/58 NIBP BP-Mean 71 Respiration from ECG 12 SpO2 100 I&O: 08/09/17 08/10/17 08/11/17 06:59 06:59 06:59 Intake Total 3140 4240 Output Total 2194 1955 Balance 946 2285 Result Diagrams: 08/10/17 04:53 08/10/17 04:53 <Alvin Dai - Last Filed: 08/10/17 08:54> - Objective Vital Signs & Weight: Vital Signs (12 hours) Temp Pulse Resp BP Pulse Ox 08/10/17 07:28 98.2 F 58 L 16 120/78 100 08/10/17 04:00 97.9 F 62 18 109/69 98 08/10/17 00:00 97.5 F L 62 16 133/97 H 97 Weight Admit Weight 76.8 kg Weight 76.8 kg Most Recent Monitor Data Heart Rate from ECG 53 NIBP 123/58 NIBP BP-Mean 71 Respiration from ECG 12 SpO2 100 I&O: 08/09/17 08/10/17 08/11/17 06:59 06:59 06:59 Intake Total 3140 4240 Output Total 2194 1955 Balance 946 2285 Result Diagrams: 08/10/17 04:53 08/10/17 04:53 <Mag Tinoco - Last Filed: 08/10/17 10:28> Phys Exam - Physical Examination Constitutional: NAD HEENT: PERRLA, moist MMs, sclera anicteric Neck: no nodes, no JVD Respiratory: no wheezing, clear to auscultation bilateral Cardiovascular: RRR, no significant murmur Gastrointestinal: soft, non-tender, positive bowel sounds Musculoskeletal: no edema, pulses present Neurological: non-focal, normal sensation Psychiatric: normal affect, A&O x 3 Skin: no rash Deviation from normal: non-jaundiced <Alvin Dai - Last Filed: 08/10/17 08:54> Dx/Plan (1) Acute hepatic encephalopathy Code(s): K72.00 - ACUTE AND SUBACUTE HEPATIC FAILURE WITHOUT COMA Status: Acute Plan: Continues to improve, doing well this morning. Per Dr. Verduzco, patient ok to go home today and continue on initial regimen with rifaxamin added. (2) Cirrhosis Code(s): K74.60 - UNSPECIFIED CIRRHOSIS OF LIVER Status: Chronic QualifierTitle: Hepatic cirrhosis type: unspecified hepatic cirrhosis (3) Hepatitis C Code(s): B19.20 - UNSPECIFIED VIRAL HEPATITIS C WITHOUT HEPATIC COMA Status: Chronic QualifierTitle: Viral hepatitis chronicity: chronic (4) Hypertension Code(s): I10 - ESSENTIAL (PRIMARY) HYPERTENSION Status: Chronic QualifierTitle: Hypertension type: essential hypertension Qualified Code( s): I10 - Essential (primary) hypertension (5) Type 2 diabetes mellitus Status: Chronic QualifierTitle: Diabetes mellitus prison insulin use: with prison use Plan: Patient was increased from 12U levemir bid to 15U bid. Still having elevated readings in the 200s. Will likely need increase in dose in outpatient setting. - Plan Plan: d/c today to [facility] <Alvin Dai - Last Filed: 08/10/17 08:54> Attending Addendum - Attending Addendum Date/Time: 08/10/17 1027 I personally evaluated the patient and discussed the management with Dr. Dai. I agree with the History, Examination, Assessment and Plan documented above with any addition or exceptions noted below. Hepatic encephalopathy-resolved. Stable for d/c on home meds plus rifixime. Strep vestibularis on urine cx- s/p 2 days rocephin. No s/s of actual infection. <Mag Tinoco - Last Filed: 08/10/17 10:28>
[2017-08-10] MEDS: Sodium Chloride 0.9% 1,000 ML IV SCH (09:28)
[2017-08-10] MEDS: Spironolactone 25 MG TAB PER TUBE SCH (09:31)
[2017-08-10] MEDS: Propranolol 10 MG TAB PER TUBE SCH ×2 (09:32)
[2017-08-10] MEDS: NPH, Human Insulin Isophane 300 UNIT/3 ML VIAL SC SCH (09:32)
[2017-08-10] MEDS: Pantoprazole 40 MG VIAL IVP SCH ×2 (09:32)
[2017-08-10] MEDS: Rifaximin 550 MG TAB PO SCH (09:33)
--- NOTE | 2017-08-10 11:37 | DIS-2 ---
DATE OF ADMISSION: 08/06/2017 DATE OF DISCHARGE: 08/10/2017 RESIDENT: Alvin Dai D.O. ADMITTING ATTENDING: Dr. Gabo Matthews DISCHARGE ATTENDING: Dr. Mag Tinoco CONSULTATIONS: Dr. Quigley of Pulmonology/Intensive Care and Dr. Verduzco of Gastroenterology. PROCEDURES: Intubation on 08/06/2017, extubation on 08/08/2017. OG tube on 08/06/2017. Chest x-ray on 08/07/2017 showing left lower lobe parenchymal opacity, left lower pneumonitis versus atelectasis ; endotracheal catheter in good radiographic position. Brain CT on 08/06/2017 showing no intracranial abnormality. PRIMARY DIAGNOSES: 1. Acute respiratory failure secondary to acute hepatic encephalopathy. 2. Hyperbilirubinemia. 3. Thrombocytopenia. 4. Gastrointestinal bleed secondary to OG tube placement, resolved. SECONDARY DISCHARGE DIAGNOSES: 1. Chronic hepatitis C. 2. Cirrhosis. 3. Hypertension. 4. Type 2 diabetes. DISCHARGE MEDICATIONS: Lasix 40 mg p.o. b.i.d., Levemir 15 units b.i.d., lactulose 45 grams p.o. t. i.d., propranolol 10 mg p.o. daily, Rifaximin 550 mg p.o. b.i.d., spironolactone 50 mg p.o. b.i.d. DISCONTINUED MEDICATIONS: None. HISTORY OF PRESENT ILLNESS AND HOSPITAL COURSE: The patient is a 52-year-old male who came in with d ifficulty breathing requiring intubation on the . The patient has a longstanding history of live r failure with hepatitis C and cirrhosis. Initial ammonia was 229. Additionally, there were concern s of a GI bleed due to blood on initial OG-tube placement as well as history of liver failure; toñito baker, consult with Gastroenterology as well as trending the patient's lab values with hemoglobin, it freeman ears that this was simply traumatic during OG placement as the patient had minimal blood output on OG suction. Of note, the patient did have thrombocytopenia of platelets 43, which could have been a co ntributing factor. However, on day of discharge, the patient's hemoglobin was 12.6. Because the pat ient was fairly stable with H&H, there was no indication for endoscopy or colonoscopy. The patient w as extubated on the and was able to tolerate breathing off the vent. However, the patient mahamed nued to be moderately encephalopathic throughout the day. The patient was increased on his lactulose from t.i.d. in the outpatient setting to q.i.d. in the hospital. The patient had significant bowel movements with trending improved ammonia levels. On the night of 08/08/2017, the patient was able to pass a swallow study and was restarted on a consistent carb diet. Throughout the rest of hospitaliz ation, patient's orientation continue to improve and on day of discharge was awake and oriented x4. He was transferred to the floor on 08/09/2017. Additionally, Dr. Verduzco, Gastroenterology, started the patient on rifaximin and recommended this to be continued moving forward. Regarding the patient's b lood sugar levels, he initially was on 12 units of Levemir b.i.d.; however, blood sugars throughout h ospital stay were in the mid to upper 200s with occasional levels at 180, 170s. However, after the p atient was extubated and began eating, his levels were 248, 261, 196, 245 over a 2 day period. The p atient was increased from 12 units b.i.d. to 15 units b.i.d. with continued elevated blood sugars soham pite escalation of insulin. This will likely need to be titrated in the outpatient setting when the patient's diet is more realistic to what he eats in the real world. Initially, the patient had a urinalysis done which showed 1+ bacteria, which was cultured and found t o have a Streptococcus vestibularis. The patient was treated with 2 doses of Rocephin. Asymptomatic on the day of discharge. Regarding the patient's bilirubin levels, he was initially at 2.9, which i ncreased to 3.5, on day of discharge it was trending down to 1.9. DISPOSITION: Stable. DISCHARGE INSTRUCTIONS: 1. Location: [facility]. 2. Diet: Diabetic. 3. Activity: As tolerated. 4. Followup: Followup visit with physician at [facility] in the next week.
[2017-08-10 11:47] VITALS: BP 133/89; TEMP 98
[2017-08-10 13:23] LABS: ANA Symphony (Qualitative) Negative (Negative); EliA Vaculitis New Method **** NEW METHOD ****; Mitochondrial Ab 1.6 U/mL (<4 Negative)
[2017-08-11 11:21] LABS: HCV log10 4.544 (.); Hep C PCR-Quant 35000 IU/mL (.)
[2017-08-11 13:28] LABS: Smooth Muscle Total ABS 23 Units (0-19)
== END 2017-08-10 13:10 | DRG 441 ==
LOC: ERS 21:01 → EEVIPCON 22:49 → CCU 22:49 → SURG A 08-09 17:10
PROVIDERS: ADMIT Family Medicine; ATTEND Family Medicine
PROC: 5A1945Z Respiratory Ventilation, 24-96 Consecutive Hours (ICD-10-PCS; principal; 2017-08-07)
PROC: 0BH17EZ Insertion of Endotracheal Airway into Trachea, Via Natural or Artificial Opening (ICD-10-PCS; 2017-08-07)
DX: K72.90 Hepatic failure, unspecified without coma (principal); J96.00 Acute respiratory failure, unspecified whether with hypoxia or hypercapnia; E87.2 Acidosis; D69.6 Thrombocytopenia, unspecified; E87.1 Hypo-osmolality and hyponatremia; E87.8 Other disorders of electrolyte and fluid balance, not elsewhere classified; K92.2 Gastrointestinal hemorrhage, unspecified; K91.71 Accidental puncture and laceration of a digestive system organ or structure during a digestive system procedure; R82.71 Bacteriuria; B18.2 Chronic viral hepatitis C; E11.9 Type 2 diabetes mellitus without complications; I10 Essential (primary) hypertension; Z79.4 Long term (current) use of insulin; K74.60 Unspecified cirrhosis of liver; Z78.1 Physical restraint status; Y84.8 Other medical procedures as the cause of abnormal reaction of the patient, or of later complication, without mention of misadventure at the time of the procedure
CPT/HCPCS: 36415; 36416; 70450; 71045; 80053; 80074; 80306; 80307; 81003; 81015; 82140; 82390; 82553; 82728; 82805; 83036; 83516; 83540; 83550; 83690; 84443; 84484; 85025; 85610; 85730; 86038; 86225; 87077; 87086; 87522; 93005; 94002; 94003; A4216; C9113; J0696; J1815; J1940; J2060; J2354; J2704; J7050